=== PATIENT | male | born 1995 | race Caucasian/White ===

== ENCOUNTER 2021-02-15 14:59 | Emergency (ER) | payer OTHER ==
[~2021-02-15] VITALS: Ht 182.9 cm; Wt 84.1 kg
[2021-02-15] MEDS ORDERED: AUGMENTIN 875 MG TAB PO ONE (17:45)
[2021-02-15] MEDS ORDERED: AUGM875T28 PO (18:16)
[2021-02-15 18:35] VITALS: BP 128/80
== END 2021-02-15 18:37 | disposition home or self-care (01) ==
LOC: M ED 14:59
DX: S61.232A Puncture wound without foreign body of right middle finger without damage to nail, initial encounter (principal); S61.234A Puncture wound without foreign body of right ring finger without damage to nail, initial encounter; S61.237A Puncture wound without foreign body of left little finger without damage to nail, initial encounter; S61.233A Puncture wound without foreign body of left middle finger without damage to nail, initial encounter; S61.235A Puncture wound without foreign body of left ring finger without damage to nail, initial encounter; W54.0XXA Bitten by dog, initial encounter; Y92.009 Unspecified place in unspecified non-institutional (private) residence as the place of occurrence of the external cause; Y93.9 Activity, unspecified; Y99.9 Unspecified external cause status